=== PATIENT | male | born 1945 | race Caucasian/White ===

== ENCOUNTER 2018-09-19 06:28 | Emergency (ER) | payer MEDICARE ==
[~2018-09-19] VITALS: Ht 180.3 cm; Wt 78.0 kg
[2018-09-19] MEDS ORDERED: AMLODIPINE BESYL5 MG PO (07:03)
[2018-09-19] MEDS ORDERED: LASIX 20 MG TAB20 MG PO (07:04)
[2018-09-19] MEDS ORDERED: LIPITOR20 MG PO (07:04)
[2018-09-19] MEDS ORDERED: PRILOSEC OTC20 MG PO (07:05)
[2018-09-19] MEDS ORDERED: SPIRIVA HANDIH18 MCG IN (07:06)
[2018-09-19] MEDS ORDERED: SYMBICORT1 AE1 IN (07:06)
[2018-09-19] MEDS ORDERED: TOPROL XL PO (07:07)
[2018-09-19] MEDS ORDERED: ASPIRIN EC LOW81 MG PO (07:07)
[2018-09-19] MEDS ORDERED: L-LYSINE500 M2 PO (07:08)
[2018-09-19 07:41] LABS: HEMATOCRIT 43.5 % (39.0-50.0); HEMOGLOBIN 14.4 g/dl (14.0-18.0); IMMATURE GRANULOCYTES 0.4 % (0.0-5.0); MEAN CELL VOLUME 92.8 fL CALC (80.0-100.0); MEAN CORPUSCULAR HGB 30.7 pG CALC (26.0-32.0); MEAN CORPUSCULAR HGB CONC 33.1 g/L CALC (32.0-36.0); NEUT# 9.57 thou/uL (1.82-7.42); RED BLOOD COUNT 4.69 mill/uL (4.70-6.10); RED CELL DISTRI WIDTH 12.9 % (11.5-15.5)
[2018-09-19] MEDS ORDERED: CEPHALEXIN500 M1 PO (07:46)
[2018-09-19] MEDS ORDERED: TRAMADOL HYDROC50 MG PO (07:46)
[2018-09-19] MEDS ORDERED: TAMSULOSIN0.4 MG PO (07:46)
[2018-09-19 08:09] LABS: URINE BILIRUBIN - DIPSTICK NEGATIVE (NEGATIVE); URINE BLOOD DIPSTICK SMALL (NEGATIVE); URINE COLOR YELLOW; URINE GLUCOSE - DIPSTICK NEGATIVE (NEGATIVE); URINE KETONE NEGATIVE (NEGATIVE); URINE LEUK ESTERASE NEGATIVE (NEGATIVE); URINE PH 7.5 (4.5-8.0); URINE PROTEIN - DIPSTICK 100 mg/dL (NEG-TRACE); URINE UROBILINOGEN - DIPSTICK 0.2 E.U./dL (0.2)
[2018-09-19 08:11] LABS: BILIRUBIN, TOTAL 0.4 mg/dL (0.0-1.4); CREATININE 1.5 mg/dL (0.7-1.3); POTASSIUM 4.5 mmol/l (3.5-5.1); TOTAL PROTEIN 7.1 g/dL (6.3-8.2)
[2018-09-19 08:15] LABS: URINE NITRITE - DIPSTICK NEGATIVE (Negative)
[2018-09-19 08:40] VITALS: BP 169/81
== END 2018-09-19 08:40 | disposition home or self-care (01) ==
LOC: ED 06:28
PROVIDERS: Family Medicine
DX: N13.2 Hydronephrosis with renal and ureteral calculous obstruction (principal); I71.4 Abdominal aortic aneurysm, without rupture; E27.9 Disorder of adrenal gland, unspecified; M54.5 Low back pain; R50.9 Fever, unspecified; R11.2 Nausea with vomiting, unspecified; F17.210 Nicotine dependence, cigarettes, uncomplicated

== ENCOUNTER 2019-04-01 | Emergency (ER) | payer MEDICARE ==
[~2019-04-01] MED LIST: AMLODIPINE BESYL5 MG PO; ASPIRIN EC LOW81 MG PO; CEPHALEXIN500 M1 PO; L-LYSINE500 M2 PO; LASIX 20 MG TAB20 MG PO; LIPITOR20 MG PO; PRILOSEC OTC20 MG PO; SPIRIVA HANDIH18 MCG IN; SYMBICORT1 AE1 IN; TAMSULOSIN0.4 MG PO; TOPROL XL PO; TRAMADOL HYDROC50 MG PO
[2019-04-01 14:44] LABS: HEMATOCRIT 44.6 % (39.0-50.0); IMMATURE GRANULOCYTES 0.4 % (0.0-5.0); MEAN CELL VOLUME 90.7 fL CALC (80.0-100.0); MEAN CORPUSCULAR HGB 30.5 pG CALC (26.0-32.0); MEAN CORPUSCULAR HGB CONC 33.6 g/L CALC (32.0-36.0); NEUT# 6.48 thou/uL (1.82-7.42); RED BLOOD COUNT 4.92 mill/uL (4.70-6.10); RED CELL DISTRI WIDTH 13.2 % (11.5-15.5)
[2019-04-01 14:55] LABS: ALBUMIN 4.1 g/dL (3.2-5.0); ALKALINE PHOSPHATASE 116 u/l (38-126); ANION GAP 11 (6-22 (CALC)); BILIRUBIN, TOTAL 0.6 mg/dL (0.0-1.4); BUN 10 mg/dL (8-23); BUN/CREATININE RATIO 11 (12-20 (CALC)); CARBON DIOXIDE 26 mmol/l (22-30); CHLORIDE 102 mmol/l (95-108); CREATININE 0.9 mg/dL (0.7-1.3); GFR > 60 ML/MIN (>=60 (CALC)); GFR FOR AFR.AMER. > 60 ML/MIN (>=60 (CALC)); POTASSIUM 4.3 mmol/l (3.5-5.1); SGOT/AST 30 u/l (19-48); SODIUM 135 mmol/l (137-146); TOTAL PROTEIN 7.3 g/dL (6.3-8.2)
[2019-04-01] MEDS ORDERED: ZITHROMAX250 MG PO (16:04)
[2019-04-01] MEDS ORDERED: MEDDOSEPAK PO (16:04)
== END 2019-04-01 16:19 | disposition home or self-care (01) ==
DX: J44.1 Chronic obstructive pulmonary disease with (acute) exacerbation (principal); Z85.118 Personal history of other malignant neoplasm of bronchus and lung
CPT/HCPCS: Q9967

== ENCOUNTER 2019-04-29 | Emergency (ER) | payer MEDICARE ==
[~2019-04-29] MED LIST changes: +MEDDOSEPAK PO; +ZITHROMAX250 MG PO
[2019-04-29] MEDS ORDERED: PREDNISONE10 MG PO (16:42)
[2019-04-29 16:53] LABS: IMMATURE GRANULOCYTES 0.6 % (0.0-5.0); MEAN CELL VOLUME 93.9 fL CALC (80.0-100.0); MEAN CORPUSCULAR HGB 30.3 pG CALC (26.0-32.0); MEAN CORPUSCULAR HGB CONC 32.3 g/L CALC (32.0-36.0); NEUT# 7.99 thou/uL (1.82-7.42); RED BLOOD COUNT 3.46 mill/uL (4.70-6.10); RED CELL DISTRI WIDTH 13.9 % (11.5-15.5)
[2019-04-29 17:05] LABS: HEMATOCRIT 32.5 % (39.0-50.0); HEMOGLOBIN 10.5 g/dl (14.0-18.0)
[2019-04-29 17:11] LABS: ALBUMIN 3.5 g/dL (3.2-5.0); BILIRUBIN, TOTAL 0.6 mg/dL (0.0-1.4); CREATININE 1.4 mg/dL (0.7-1.3); POTASSIUM 4.3 mmol/l (3.5-5.1)
[2019-04-29 17:33] LABS: URINE BILIRUBIN - DIPSTICK NEGATIVE (NEGATIVE); URINE BLOOD DIPSTICK NEGATIVE (NEGATIVE); URINE COLOR YELLOW; URINE GLUCOSE - DIPSTICK NEGATIVE (NEGATIVE); URINE KETONE NEGATIVE (NEGATIVE); URINE LEUK ESTERASE NEGATIVE (NEGATIVE); URINE NITRITE - DIPSTICK NEGATIVE (Negative); URINE PH 5.5 (4.5-8.0); URINE PROTEIN - DIPSTICK NEGATIVE (NEG-TRACE); URINE UROBILINOGEN - DIPSTICK 0.2 E.U./dL (0.2)
== END 2019-04-29 19:40 | disposition short-term general hospital (02) ==
PROVIDERS: Family Medicine
DX: K92.1 Melena (principal); I10 Essential (primary) hypertension; J44.9 Chronic obstructive pulmonary disease, unspecified; F17.200 Nicotine dependence, unspecified, uncomplicated; Z95.1 Presence of aortocoronary bypass graft
CPT/HCPCS: J2354; Q9967; S0164

== ENCOUNTER 2019-10-03 11:15 | Emergency (ER) | payer MEDICARE ==
[~2019-10-03] VITALS: Ht 180.3 cm; Wt 75.0 kg
[~2019-10-03 11:15] MED LIST changes: +PREDNISONE10 MG PO
[2019-10-03] MEDS ORDERED: CEPHALEXIN500 M1 PO (11:44)
[2019-10-03 12:07] VITALS: BP 143/75
== END 2019-10-03 12:07 | disposition home or self-care (01) ==
LOC: ED 11:15
DX: L03.116 Cellulitis of left lower limb (principal); I10 Essential (primary) hypertension; J44.9 Chronic obstructive pulmonary disease, unspecified; Z95.1 Presence of aortocoronary bypass graft; F17.200 Nicotine dependence, unspecified, uncomplicated

== ENCOUNTER 2020-11-04 05:02 | Emergency (ER) | payer MEDICARE ==
[~2020-11-04] VITALS: Ht 180.3 cm; Wt 85.9 kg
[2020-11-04 05:26] LABS: IMMATURE GRANULOCYTES 0.3 % (0.0-5.0); MEAN CORPUSCULAR HGB 30.1 pG CALC (26.0-32.0); MEAN CORPUSCULAR HGB CONC 30.1 g/dL CAL (32.0-36.0); NEUT# 14.23 thou/uL (1.82-7.42); RED BLOOD COUNT 4.89 mill/uL (4.70-6.10); RED CELL DISTRI WIDTH 13.7 % (11.5-15.5)
[2020-11-04 05:27] LABS: HEMATOCRIT 48.8 % (39.0-50.0); HEMOGLOBIN 14.7 g/dl (14.0-18.0); MEAN CELL VOLUME 99.8 fL CALC (80.0-100.0)
[2020-11-04 05:41] LABS: ALBUMIN 3.7 g/dL (3.2-5.0); CREATININE 1.6 mg/dL (0.7-1.3); POTASSIUM 4.6 mmol/l (3.5-5.1); TOTAL PROTEIN 6.5 g/dL (6.3-8.2)
[2020-11-04 05:42] LABS: ACT PARTIAL THROMBO TIME 20.2 SECONDS (20.0-32.5); PROTHROMBIN TIME 10.4 SECONDS (9.0-12.5)
[2020-11-04 05:43] LABS: BILIRUBIN, TOTAL 0.3 mg/dL (0.0-1.4)
[2020-11-04 07:54] VITALS: BP 147/79
== END 2020-11-04 10:16 | disposition short-term general hospital (02) ==
LOC: ED 05:02
PROC: 5A09357 Assistance with Respiratory Ventilation, Less than 24 Consecutive Hours, Continuous Positive Airway Pressure (ICD-10-PCS; principal; 2020-11-04)
DX: I21.4 Non-ST elevation (NSTEMI) myocardial infarction (principal); J44.1 Chronic obstructive pulmonary disease with (acute) exacerbation; I11.0 Hypertensive heart disease with heart failure; I50.9 Heart failure, unspecified; J96.90 Respiratory failure, unspecified, unspecified whether with hypoxia or hypercapnia; L03.116 Cellulitis of left lower limb; F17.200 Nicotine dependence, unspecified, uncomplicated; Z95.1 Presence of aortocoronary bypass graft; Z85.118 Personal history of other malignant neoplasm of bronchus and lung; Z92.3 Personal history of irradiation; Z92.21 Personal history of antineoplastic chemotherapy; Z90.2 Acquired absence of lung [part of]; Z20.822 Contact with and (suspected) exposure to COVID-19
CPT/HCPCS: J1644

== ENCOUNTER 2021-03-03 14:37 | Inpatient (IN) | payer MEDICARE ==
[~2021-03-03] VITALS: Ht 180.3 cm; Wt 82.0 kg
--- NOTE | 2021-03-03 14:37 | NUR ---
PT TO ROOM 9 VIA WC ABLE TO STAND AND TRANSFER SELF TO STRETCHER. SATS 95 RA
[2021-03-03 15:18] LABS: HEMATOCRIT 41.4 % (39.0-50.0); HEMOGLOBIN 12.2 g/dl (14.0-18.0); IMMATURE GRANULOCYTES 0.2 % (0.0-5.0); MEAN CELL VOLUME 87.2 fL CALC (80.0-100.0); MEAN CORPUSCULAR HGB 25.7 pG CALC (26.0-32.0); MEAN CORPUSCULAR HGB CONC 29.5 g/dL CAL (32.0-36.0); NEUT# 10.57 thou/uL (1.82-7.42); RED BLOOD COUNT 4.75 mill/uL (4.70-6.10)
[2021-03-03 15:31] LABS: ALBUMIN 3.9 g/dL (3.2-5.0); BILIRUBIN, TOTAL 0.7 mg/dL (0.0-1.4); CREATININE 1.6 mg/dL (0.7-1.3); POTASSIUM 4.7 mmol/l (3.5-5.1); TOTAL PROTEIN 6.8 g/dL (6.3-8.2)
--- NOTE | 2021-03-03 16:10 | NUR ---
MEDICATED ORDERED, AT BEDSIDE
--- NOTE | 2021-03-03 16:56 | NUR ---
RESPS EVEN AND UNLABORED ON O2 VIA NC. DENIES NEEDS AT THIS TIME. AT BEDSIDE
--- NOTE | 2021-03-03 17:50 | NUR ---
MEDICATED PER MAR, AT BEDSIDE.
[2021-03-03 19:01] LABS: URINE BILIRUBIN - DIPSTICK NEGATIVE (NEGATIVE); URINE BLOOD DIPSTICK NEGATIVE (NEGATIVE); URINE COLOR YELLOW; URINE GLUCOSE - DIPSTICK >=1000 mg/dL (NEGATIVE); URINE KETONE NEGATIVE (NEGATIVE); URINE LEUK ESTERASE NEGATIVE (NEGATIVE); URINE PROTEIN - DIPSTICK 100 mg/dL (NEG-TRACE); URINE SPECIFIC GRAVITY 1.025; URINE UROBILINOGEN - DIPSTICK 0.2 E.U./dL (0.2)
--- NOTE | 2021-03-03 19:03 | NUR ---
REPORT TO PREMA MILLER
[2021-03-03 19:10] LABS: URINE NITRITE - DIPSTICK NEGATIVE (Negative)
[2021-03-03 19:12] LABS: URINE RBC 0-2 RBC/hpf (0-5); URINE WBC 0-2 WBC/hpf (0-5)
[2021-03-03] MEDS ORDERED: TAMSULOSIN0.4 MG PO (19:14)
[2021-03-03] MEDS ORDERED: ENTRESTO 24-261 TAB PO (19:16)
[2021-03-03] MEDS ORDERED: JARDIANCE10 MG PO (19:17)
--- NOTE | 2021-03-03 20:22 | NUR ---
MD AT BEDSIDE DISCUSSED RESULTS. PT STATED HE DOES NOT WANT TO BE TRANSFERED
--- NOTE | 2021-03-03 21:10 | NUR ---
PT RESTING ON STRETCHER AWARE OF PENDING ADMIT.
--- NOTE | 2021-03-03 21:30 | NUR ---
PT VOIDED APPROX 6000 ML DARK YELLOW URINE IN URINAL SINCE LASIX IV.
--- NOTE | 2021-03-03 21:44 | NUR ---
REPORT PROVIDED TO PAUL BAEZ, ICU. ADVISED OF ALL MEDS, EVENTS, ATTACHMENTS.
--- NOTE | 2021-03-03 22:15 | NUR ---
PT TO ICU, MONITORED BY PORTABLE CADIAC MONITOR FOR TRANSPORT
--- NOTE | 2021-03-03 22:20 | NUR ---
Admission Note Report Given to: BRIONNA Benton RN Transported by: Wheelchair X Stretcher Transported with: X Nurse Transporter X Patent IV X O2 X Leak Gang Supervisor Location: X ICU [facility]
--- NOTE | 2021-03-03 22:25 | NUR ---
RECEIVED INTO ICU BED 1 FROM ER VIA STRETCHER. PATIENT AMBULATED FROM STRETCHER TO BED. STABLE STANCE AND GAIT. PLACED ON HIMS CODER SHOWING SR. ORIENTED TO SURROUNDINGS. EXPLAINED USE OF CALL CORDOBA AND BED CONTROLS. CALL CORDOBA IN REACH.
[2021-03-03 22:30] VITALS: BP 170/91
--- NOTE | 2021-03-03 22:30 | NUR ---
RESP SHALLOW, SLT LABORED. O2 ON AT 2.5 L NC. O2 SAT 99% BREATH SOUNDS DIMINISHED ESSENTIALLY CLEAR. 4+ PITTING EDEMA OF BLE. SALINE LOCK INTACT IN LAC. ADMISSION ASSESSMENT COMPLETED. DISCUSSED PLAN OF CARE. PATIENT PROVIDED WITH SNACK.
[2021-03-03 22:45] VITALS: BP 162/94
[2021-03-03 23:00] VITALS: BP 164/85
[2021-03-03 23:30] VITALS: BP 162/82
--- NOTE | 2021-03-03 23:30 | NUR ---
BABY DOCTOR HERE TO DRAW BLOOD FOR BASELINE PTT PRIOR TO HEPARIN GTT.
[2021-03-04] VITALS (12 sets, daily range): BP systolic 105–164; BP diastolic 58–92
[2021-03-04 00:03] LABS: ACT PARTIAL THROMBO TIME 22.7 SECONDS (20.0-32.5); INTERNATIONAL NORMALIZED RATIO 1.1 RATIO (0.7-1.3)
--- NOTE | 2021-03-04 00:20 | NUR ---
PTT 22.7. PATIENT ACTUAL WEIGHT 81 KG. PATIENT ON LOW DOSE HEPARIN PROTOCOL. HEPARIN BOLUS OF 5000 UNITS GIVEN IVP. HEPARIN GTT STARTED AT 950 UNITS/HR. WILL RECHECK PTT AT 0630.
--- NOTE | 2021-03-04 02:00 | NUR ---
SLEEPING SOUNDLY IN SEMI-FOWLERS POSITION. RESP LESS LABORED AT THIS TIME.
--- NOTE | 2021-03-04 04:00 | NUR ---
PATIENT RESTING WITH EYES CLOSED. AWAKENS EASILY TO NAME. VSS. O2 SAT 100% ON O2 2.5 L NC. MONITOR SR.
[2021-03-04 06:26] LABS: HEMATOCRIT 42.5 % (39.0-50.0); HEMOGLOBIN 12.5 g/dl (14.0-18.0); MEAN CELL VOLUME 86.9 fL CALC (80.0-100.0); MEAN CORPUSCULAR HGB 25.6 pG CALC (26.0-32.0); MEAN CORPUSCULAR HGB CONC 29.4 g/dL CAL (32.0-36.0); RED BLOOD COUNT 4.89 mill/uL (4.70-6.10)
[2021-03-04 06:37] LABS: CHOLESTEROL HDL RATIO 2.6 (<4.4 (CALC)); CREATININE 1.6 mg/dL (0.7-1.3); MAGNESIUM 2.2 mg/dL (1.6-2.3); POTASSIUM 4.9 mmol/l (3.5-5.1)
--- NOTE | 2021-03-04 07:35 | NUR ---
pt awake in recliner; offers no complaints; no apparent distress noted; assessment completed at this time; pt alert and oriented; denies pain; no n/v noted; exertional sob noted with activity; resp even and unlabored; lungs coarse/ faint exp wheezing/ diminished bases; skin colot wnl; hr reg; wk pedal pulses; 4+ edema noted to ble; st on monitor; abd soft with bs present; no bm noted per aligner typewriter; pt admits to voiding without complication; no urine to inspect at this time; urinal at bedside; #20 to lac patent with heparin gtt infusing without complication; heparin bolus and gtt titrated per ptt results; scabbed abrasions noted to ble; plan of care/ am meds explained; pt request to have spouse bring in Entresto; call light within reach; will continue to monitor
--- NOTE | 2021-03-04 08:40 | NUR ---
Dr Melara present at bedside to assess pt and discuss plan of care
--- NOTE | 2021-03-04 10:00 | NUR ---
awake in the recliner; offers no complaints; iv intact and patent; heparin gtt maintained; sr/pvc on monitor; urinal at bedside; o2 per nc; call light within reach; will continue to monitor
--- NOTE | 2021-03-04 12:00 | NUR ---
awake in recliner; spouse at bedside; pt offers no complaints; iv intact and patent; heparin gtt continued; sr on monitor; o2 per nc; call light within reach; will continue to monitor
--- NOTE | 2021-03-04 14:00 | NUR ---
analytical lab analyst at bedside; pt offers no complaints; iv intact and patent; sr on monitor; heparin gtt continued; will continue to monitor
--- NOTE | 2021-03-04 16:10 | NUR ---
awake in bed; no apparent distress noted; pt offers no complaints; iv intact and patent; heparin gtt cont at 1250 units/hr; sr on monitor; o2 per nc at 2L; call light within reach; will continue to monitor
--- NOTE | 2021-03-04 18:00 | NUR ---
awake in bed; offers no complaints; no apparent distress noted; iv intact and maintained; heparin gtt infusing without complication; sr on monitor; call light within reach
--- NOTE | 2021-03-04 19:15 | NUR ---
sitting in bedside chair. lying in bed. denies distress/chest pain. o2 cont per nc. radiation monitor shows sinus rhythm hr 85. #20 lac heparin gtt infusing well. #22 rfa saline lock. po fluids taken well. amb with assist to br then back to chair. meryl well. fall precautions cont.
--- NOTE | 2021-03-04 20:05 | NUR ---
lab here. blood drawn.
--- NOTE | 2021-03-04 22:00 | NUR ---
in recliner. eyes closed. no distress.
[2021-03-05] VITALS (12 sets, daily range): BP systolic 94–138; BP diastolic 47–75
--- NOTE | 2021-03-05 00:01 | NUR ---
eyes closed. no distress. o2 cont.
--- NOTE | 2021-03-05 02:00 | NUR ---
resting quietly. no distress. security monitor shows sinus rhythm pacs pvcs.
--- NOTE | 2021-03-05 03:30 | NUR ---
lab here. blood drawn.
[2021-03-05 04:16] LABS: HEMOGLOBIN 11.9 g/dl (14.0-18.0); IMMATURE GRANULOCYTES 0.2 % (0.0-5.0); MEAN CELL VOLUME 88.6 fL CALC (80.0-100.0); MEAN CORPUSCULAR HGB 25.7 pG CALC (26.0-32.0); NEUT# 7.15 thou/uL (1.82-7.42); RED BLOOD COUNT 4.63 mill/uL (4.70-6.10); RED CELL DISTRI WIDTH 15.1 % (11.5-15.5)
[2021-03-05 04:45] LABS: CREATININE 1.6 mg/dL (0.7-1.3); MAGNESIUM 2.2 mg/dL (1.6-2.3); POTASSIUM 4.6 mmol/l (3.5-5.1)
--- NOTE | 2021-03-05 05:30 | NUR ---
xray here. pcxr obtained.
--- NOTE | 2021-03-05 07:05 | NUR ---
pt awake in recliner (per self); no apparent distress noted; pt offers no complaints; assessment completed at this time; pt alert and oriented; denies pain, chest pain; no n/v noted; resp even and unlabored; lungs clear, diminished bases; skin color wnl; o2 per nc titrated to 1.5L; o2 sat 95%; exertional sob noted; hr reg; wk pedal pulses 4+ edema noted to ble; feet/leg elevation strongly encouraged while in recliner; st on monitor; abd soft with bs present; no bm noted per fiction writer; pt voiding clear dk yellow urine without complication; urinal at bedside; #20 patent to lac with heparin gtt infusing at 1400units/hr; #22 saline locked to rw; no redness or edema noted at site; scabbed abrasions noted to ble; plan of care/am meds explained; call light within reach; will continue to monitor
--- NOTE | 2021-03-05 08:03 | NUR ---
awake in chair; offers no complaints; iv intact and patent; sr on monitor; o2 per nc at 1.5l; call light within reach; will continue to monitor
--- NOTE | 2021-03-05 08:15 | NUR ---
Dr Melara present at bedside to assess pt and discuss plan of care
--- NOTE | 2021-03-05 10:14 | NUR ---
awake in chair; offers no complaints; iv intact and patent; heparin gtt infusing at 1400 units/hr; sr pac/pvc on monitor; call light within reach; will continue to monitor
--- NOTE | 2021-03-05 10:45 | NUR ---
pt noted to have accidently disclodged iv from lac with catheter tip intact; heparin resumed to rw site; lab called for ordered ptt; no answer;
--- NOTE | 2021-03-05 10:58 | NUR ---
underwriter solicitation director spoke with Dr Melara; heparin gtt to be discontinued;
--- NOTE | 2021-03-05 12:00 | NUR ---
awake in chair; offers no complaints; iv intact; sr pvc on monitor; o2 per nc; pt deny needs; call light within reach; will continue to monitor
--- NOTE | 2021-03-05 14:05 | NUR ---
awake in bed; no apparent distress noted; pt offers no complaints; iv intact; pt removed from o2; o2 sat noted at 94% RA; will continued to watch closely; spouse at bedside; spouse assist pt with bath; spouse also requesting home oxygen prior to discharge; o2 qualifications explained; will continue to monitor
--- NOTE | 2021-03-05 16:00 | NUR ---
awake in chair; no apparent distress noted; sr on monitor; will continue to monitor
--- NOTE | 2021-03-05 18:15 | NUR ---
awake in chair; offers no complaints; iv intact and patent; sr pac/pvc on monitor; ra; deny needs; call light within reach
--- NOTE | 2021-03-05 19:30 | NUR ---
sitting in bedside chair. denies resp diff. cardiac cath lab technologist shows sinus rhythm pacs pvcs hr 79. po fluids taken well. voids per urinal. fall precautions cont.
--- NOTE | 2021-03-05 22:00 | NUR ---
eyes closed. no distress. professor of oceanography shows sinus rhythm pacs pvcs hr 72.
--- NOTE | 2021-03-06 00:01 | NUR ---
eyes closed. no distress. sleeping in recliner.
[2021-03-06 01:30] VITALS: BP 123/71
--- NOTE | 2021-03-06 02:00 | NUR ---
resting quietly. resps even & unlabored. no apparent distress.
[2021-03-06 03:30] VITALS: BP 126/57
--- NOTE | 2021-03-06 04:00 | NUR ---
eyes closed. no apparent distress.
--- NOTE | 2021-03-06 04:50 | NUR ---
xray here. pcxr obtained.
--- NOTE | 2021-03-06 05:22 | NUR ---
lab here. blood drawn.
[2021-03-06 05:30] VITALS: BP 126/71
[2021-03-06 05:46] LABS: HEMATOCRIT 42.4 % (39.0-50.0); HEMOGLOBIN 12.4 g/dl (14.0-18.0); IMMATURE GRANULOCYTES 0.2 % (0.0-5.0); MEAN CELL VOLUME 88.1 fL CALC (80.0-100.0); MEAN CORPUSCULAR HGB 25.8 pG CALC (26.0-32.0); MEAN CORPUSCULAR HGB CONC 29.2 g/dL CAL (32.0-36.0); NEUT# 6.03 thou/uL (1.82-7.42); RED BLOOD COUNT 4.81 mill/uL (4.70-6.10)
[2021-03-06 06:02] LABS: CREATININE 1.4 mg/dL (0.7-1.3); POTASSIUM 4.4 mmol/l (3.5-5.1)
[2021-03-06 07:00] VITALS: BP 142/69
--- NOTE | 2021-03-06 07:00 | NUR ---
pt awake in recliner; no apparent distress noted; pt offers no complaints; assessment completed at this time; pt alert and oriented; denies pain/chest pain; no n/v noted; resp even and unlabored; lungs clear with faint exp wheezing/ diminished bases; skin color wnl; ra; o2 sat 92%; loom fixer apprentice moist cough noted; hr reg; wk pedal pulses; 3+ edema noted to ble; sr pac/pvc on monitor; abd soft with bs present; no bm noted per keno writer/runner; pt voiding clear yellow urine; urinal at bedside; #22 saline locked to rw; no redness or edema noted at site; plan of care/ am meds explained; pt remains MST OF; call light within reach; will continue to monitor
--- NOTE | 2021-03-06 08:00 | NUR ---
awake in recliner; offers no complaints; no distress noted; will continue to monitor
--- NOTE | 2021-03-06 08:30 | NUR ---
Dr Melara present at bedside to assess pt and discuss plan of care
[2021-03-06 09:38] VITALS: BP 107/62
--- NOTE | 2021-03-06 10:08 | NUR ---
resting in recliner with eyes closed; no apparent distress noted; iv intact; sr pac/pvc on monitor; call light within reach; will continue to monitor
[2021-03-06] MEDS ORDERED: LASIX 20 MG TAB20 MG PO (10:21)
[2021-03-06] MEDS ORDERED: KLOR-CON M2020 MEQ PO (10:33)
[2021-03-06] MEDS ORDERED: ZITHROMAX250 MG PO (10:33)
--- NOTE | 2021-03-06 11:30 | NUR ---
discharge instructions reviewed in great detail with spouse and pt; both verbalized understanding; home Entresto returned; pt served lunch; will continue to monitor
--- NOTE | 2021-03-06 12:10 | NUR ---
Discharge instructions given. Patient verbalizes understanding of same. Discharged in stable condition via Wheelchair to Home with spouse. All belongings sent with pt.
== END 2021-03-06 12:10 | disposition home or self-care (01) | DRG 291 ==
LOC: ED 14:37 → ICU 20:23
PROVIDERS: Emergency Medicine; Nurse Practitioner; ADMIT Internal Medicine; ATTEND Internal Medicine
DX: I11.0 Hypertensive heart disease with heart failure (principal); I50.23 Acute on chronic systolic (congestive) heart failure; J18.9 Pneumonia, unspecified organism; J96.01 Acute respiratory failure with hypoxia; J44.0 Chronic obstructive pulmonary disease with (acute) lower respiratory infection; R79.89 Other specified abnormal findings of blood chemistry; F17.210 Nicotine dependence, cigarettes, uncomplicated; Z90.2 Acquired absence of lung [part of]; Z79.52 Long term (current) use of systemic steroids; Z20.822 Contact with and (suspected) exposure to COVID-19
CPT/HCPCS: J1644

== ENCOUNTER 2021-10-07 12:50 | Inpatient (IN) | payer MEDICARE ==
[2021-10-07] VITALS (45 sets, daily range): BP systolic 80–133; BP diastolic 32–79
[~2021-10-07] VITALS: Ht 180.3 cm; Wt 80.4 kg
[~2021-10-07 12:50] MED LIST changes: +ENTRESTO 24-261 TAB PO; +JARDIANCE10 MG PO; +KLOR-CON M2020 MEQ PO; -TOPROL XL PO; +TOPROL XL50 MG PO
[2021-10-07] MEDS ORDERED: ELIQUIS5 MG PO (13:13)
[2021-10-07] MEDS ORDERED: LASIX 40 MG TAB40 MG PO (13:15)
[2021-10-07] MEDS ORDERED: IPRATROPIU0.5 MG/3 M IN (13:27)
[2021-10-07] MEDS ORDERED: ACETYLCYST IN (13:28)
[2021-10-07] MEDS ORDERED: CENTRUM SILVER PO (13:29)
[2021-10-07 13:42] LABS: ALBUMIN 3.4 g/dL (3.2-5.0); CREATININE 1.7 mg/dL (0.7-1.3); POTASSIUM 4.5 mmol/l (3.5-5.1); TOTAL PROTEIN 6.2 g/dL (6.3-8.2)
[2021-10-07 13:43] LABS: INTERNATIONAL NORMALIZED RATIO 1.4 RATIO (0.7-1.3); MEAN CORPUSCULAR HGB 28.7 pG CALC (26.0-32.0); MEAN CORPUSCULAR HGB CONC 30.4 g/dL CAL (32.0-36.0); PROTHROMBIN TIME 13.7 SECONDS (9.0-12.5); RED BLOOD COUNT 2.54 mill/uL (4.70-6.10); RED CELL DISTRI WIDTH 26.4 % (11.5-15.5)
[2021-10-07 13:45] LABS: HEMOGLOBIN 7.3 g/dl (14.0-18.0); MEAN CELL VOLUME 94.5 fL CALC (80.0-100.0)
[2021-10-07 13:46] LABS: PLATELET COUNT 71 thou/uL (130-400)
[2021-10-07 13:47] LABS: MANUAL DIFFERENTIAL YES
[2021-10-07 13:57] LABS: BAND 1 % (0-8)
[2021-10-07 13:58] LABS: ANISOCYTOSIS MARKED; PLATELET ESTIMATE MOD DECREASE; POIKILOCYTOSIS FEW
[2021-10-07 13:59] LABS: TEAR DROP CELLS FEW
[2021-10-07 14:00] LABS: OVALOCYTES FEW
[2021-10-07 14:06] LABS: BILIRUBIN, TOTAL 1.4 mg/dL (0.0-1.4)
[2021-10-07 23:41] LABS: HEMATOCRIT 27.1 % (39.0-50.0); HEMOGLOBIN 8.4 g/dl (14.0-18.0)
[2021-10-07 23:43] LABS: URINE BILIRUBIN - DIPSTICK NEGATIVE (NEGATIVE); URINE BLOOD DIPSTICK NEGATIVE (NEGATIVE); URINE COLOR YELLOW; URINE GLUCOSE - DIPSTICK NEGATIVE (NEGATIVE); URINE KETONE NEGATIVE (NEGATIVE); URINE LEUK ESTERASE NEGATIVE (NEGATIVE); URINE PH 5.5 (4.5-8.0); URINE PROTEIN - DIPSTICK 30 mg/dL (NEG-TRACE); URINE SPECIFIC GRAVITY 1.025
[2021-10-07 23:46] LABS: URINE NITRITE - DIPSTICK NEGATIVE (Negative)
[2021-10-07 23:50] LABS: URINE BACTERIA FEW hpf; URINE EPITHELIAL CELLS FEW EPI/hpf (0-FEW)
[2021-10-07 23:51] LABS: URINE FINE GRAN CAST MODERATE lpf; URINE HYALINE CAST RARE lpf (NONE-RARE); URINE MUCUS RARE hpf (NONE-FEW)
[2021-10-08] VITALS (60 sets, daily range): BP systolic 80–136; BP diastolic 50–86
[2021-10-08 05:48] LABS: HEMATOCRIT 28.2 % (39.0-50.0); HEMOGLOBIN 8.7 g/dl (14.0-18.0); MEAN CELL VOLUME 91.9 fL CALC (80.0-100.0); MEAN CORPUSCULAR HGB 28.3 pG CALC (26.0-32.0); MEAN CORPUSCULAR HGB CONC 30.9 g/dL CAL (32.0-36.0); RED BLOOD COUNT 3.07 mill/uL (4.70-6.10); RED CELL DISTRI WIDTH 24.4 % (11.5-15.5)
[2021-10-08 05:59] LABS: BILIRUBIN, TOTAL 1.9 mg/dL (0.0-1.4); MAGNESIUM 1.2 mg/dL (1.6-2.3); POTASSIUM 4.7 mmol/l (3.5-5.1); TOTAL PROTEIN 5.2 g/dL (6.3-8.2)
[2021-10-09] VITALS (89 sets, daily range): BP systolic 63–141; BP diastolic 41–89
[2021-10-09 06:05] LABS: HEMATOCRIT 30.6 % (39.0-50.0); HEMOGLOBIN 9.6 g/dl (14.0-18.0); IMMATURE GRANULOCYTES 0.9 % (0.0-5.0); MEAN CELL VOLUME 90.8 fL CALC (80.0-100.0); MEAN CORPUSCULAR HGB 28.5 pG CALC (26.0-32.0); MEAN CORPUSCULAR HGB CONC 31.4 g/dL CAL (32.0-36.0); NEUT# 0.74 thou/uL (1.82-7.42); RED BLOOD COUNT 3.37 mill/uL (4.70-6.10)
[2021-10-09 06:08] LABS: ALBUMIN 3.1 g/dL (3.2-5.0); BILIRUBIN, TOTAL 1.7 mg/dL (0.0-1.4); CREATININE 2.2 mg/dL (0.7-1.3); TOTAL PROTEIN 5.5 g/dL (6.3-8.2)
[2021-10-10] VITALS (24 sets, daily range): BP systolic 94–136; BP diastolic 44–87
[2021-10-10 05:51] LABS: HEMATOCRIT 28.5 % (39.0-50.0); HEMOGLOBIN 8.9 g/dl (14.0-18.0); MEAN CELL VOLUME 92.2 fL CALC (80.0-100.0); MEAN CORPUSCULAR HGB 28.8 pG CALC (26.0-32.0); MEAN CORPUSCULAR HGB CONC 31.2 g/dL CAL (32.0-36.0); RED BLOOD COUNT 3.09 mill/uL (4.70-6.10); RED CELL DISTRI WIDTH 23.8 % (11.5-15.5)
[2021-10-10 05:52] LABS: IMMATURE GRANULOCYTES 0.6 % (0.0-5.0); NEUT# 1.34 thou/uL (1.82-7.42)
[2021-10-10 05:56] LABS: ALBUMIN 2.6 g/dL (3.2-5.0); CREATININE 1.7 mg/dL (0.7-1.3); MAGNESIUM 1.9 mg/dL (1.6-2.3); POTASSIUM 4.3 mmol/l (3.5-5.1)
[2021-10-11] VITALS (25 sets, daily range): BP systolic 71–124; BP diastolic 39–82
[2021-10-11 05:11] LABS: ALBUMIN 2.8 g/dL (3.2-5.0); BILIRUBIN, TOTAL 0.8 mg/dL (0.0-1.4); CREATININE 1.7 mg/dL (0.7-1.3); MAGNESIUM 1.9 mg/dL (1.6-2.3); POTASSIUM 4.1 mmol/l (3.5-5.1)
[2021-10-11 06:01] LABS: HEMATOCRIT 27.9 % (39.0-50.0); HEMOGLOBIN 8.6 g/dl (14.0-18.0); MEAN CELL VOLUME 92.4 fL CALC (80.0-100.0); MEAN CORPUSCULAR HGB 28.5 pG CALC (26.0-32.0); MEAN CORPUSCULAR HGB CONC 30.8 g/dL CAL (32.0-36.0); RED BLOOD COUNT 3.02 mill/uL (4.70-6.10); RED CELL DISTRI WIDTH 23.7 % (11.5-15.5)
[2021-10-11 06:03] LABS: IMMATURE GRANULOCYTES 14.5 % (0.0-5.0); NEUT# 1.36 thou/uL (1.82-7.42)
[2021-10-12] VITALS (71 sets, daily range): BP systolic 80–122; BP diastolic 49–88
[2021-10-12 05:52] LABS: HEMOGLOBIN 7.7 g/dl (14.0-18.0); MEAN CELL VOLUME 93.6 fL CALC (80.0-100.0); MEAN CORPUSCULAR HGB 28.8 pG CALC (26.0-32.0); MEAN CORPUSCULAR HGB CONC 30.8 g/dL CAL (32.0-36.0); RED BLOOD COUNT 2.67 mill/uL (4.70-6.10); RED CELL DISTRI WIDTH 24.2 % (11.5-15.5)
[2021-10-12 05:53] LABS: ALBUMIN 2.8 g/dL (3.2-5.0); BILIRUBIN, TOTAL 0.6 mg/dL (0.0-1.4); CREATININE 1.8 mg/dL (0.7-1.3); POTASSIUM 4.7 mmol/l (3.5-5.1)
[2021-10-12 06:02] LABS: IMMATURE GRANULOCYTES 13.4 % (0.0-5.0); NEUT# 1.53 thou/uL (1.82-7.42)
[2021-10-13] VITALS (67 sets, daily range): BP systolic 88–135; BP diastolic 59–101
[2021-10-13 05:48] LABS: HEMOGLOBIN 8.7 g/dl (14.0-18.0); MEAN CELL VOLUME 93.3 fL CALC (80.0-100.0); MEAN CORPUSCULAR HGB CONC 31.1 g/dL CAL (32.0-36.0)
[2021-10-13 06:13] LABS: IMMATURE GRANULOCYTES 0.9 % (0.0-5.0); NEUT# 4.78 thou/uL (1.82-7.42)
[2021-10-13 07:16] LABS: BILIRUBIN, TOTAL 0.8 mg/dL (0.0-1.4); CREATININE 1.9 mg/dL (0.7-1.3); MAGNESIUM 1.9 mg/dL (1.6-2.3); TOTAL PROTEIN 5.6 g/dL (6.3-8.2)
[2021-10-13 07:24] LABS: POTASSIUM 5.3 mmol/l (3.5-5.1)
[2021-10-14] VITALS (96 sets, daily range): BP systolic 100–141; BP diastolic 57–109
[2021-10-14 05:52] LABS: ALBUMIN 2.9 g/dL (3.2-5.0); CARBON DIOXIDE 26 mmol/l (22-30); CHLORIDE 110 mmol/l (95-108); GFR FOR AFR.AMER. 39 ML/MIN (>=60 (CALC)); GFR OTHER RACES 32 ML/MIN (>=60 (CALC)); POTASSIUM 4.4 mmol/l (3.5-5.1); SODIUM 144 mmol/l (137-146)
[2021-10-14 05:59] LABS: HEMATOCRIT 29.1 % (39.0-50.0); HEMOGLOBIN 8.9 g/dl (14.0-18.0); MEAN CELL VOLUME 94.2 fL CALC (80.0-100.0); MEAN CORPUSCULAR HGB 28.8 pG CALC (26.0-32.0); MEAN CORPUSCULAR HGB CONC 30.6 g/dL CAL (32.0-36.0); RED BLOOD COUNT 3.09 mill/uL (4.70-6.10)
[2021-10-14 06:16] LABS: BUN 84 mg/dL (8-23)
[2021-10-14 06:17] LABS: IMMATURE GRANULOCYTES 1.6 % (0.0-5.0); NEUT# 10.73 thou/uL (1.82-7.42)
[2021-10-15] VITALS (51 sets, daily range): BP systolic 92–148; BP diastolic 62–91
[2021-10-15 05:07] LABS: HEMOGLOBIN 8.7 g/dl (14.0-18.0); MEAN CELL VOLUME 94.9 fL CALC (80.0-100.0); MEAN CORPUSCULAR HGB 29.5 pG CALC (26.0-32.0); MEAN CORPUSCULAR HGB CONC 31.1 g/dL CAL (32.0-36.0); RED BLOOD COUNT 2.95 mill/uL (4.70-6.10); RED CELL DISTRI WIDTH 22.8 % (11.5-15.5)
[2021-10-15 05:15] LABS: ALBUMIN 2.9 g/dL (3.2-5.0); BILIRUBIN, TOTAL 0.7 mg/dL (0.0-1.4); CREATININE 1.7 mg/dL (0.7-1.3); MAGNESIUM 1.9 mg/dL (1.6-2.3); POTASSIUM 4.4 mmol/l (3.5-5.1); TOTAL PROTEIN 5.1 g/dL (6.3-8.2)
[2021-10-15 05:27] LABS: IMMATURE GRANULOCYTES 3.9 % (0.0-5.0); NEUT# 15.68 thou/uL (1.82-7.42)
[2021-10-16 00:32] VITALS: BP 111/66
[2021-10-16 04:07] VITALS: BP 120/73
[2021-10-16 05:49] LABS: ALBUMIN 2.6 g/dL (3.2-5.0); CREATININE 1.5 mg/dL (0.7-1.3); POTASSIUM 3.7 mmol/l (3.5-5.1)
[2021-10-16 06:50] VITALS: BP 112/64
[2021-10-16 08:31] LABS: HEMATOCRIT 25.7 % (39.0-50.0); HEMOGLOBIN 8.1 g/dl (14.0-18.0); MEAN CELL VOLUME 90.8 fL CALC (80.0-100.0); MEAN CORPUSCULAR HGB 28.6 pG CALC (26.0-32.0); MEAN CORPUSCULAR HGB CONC 31.5 g/dL CAL (32.0-36.0); RED BLOOD COUNT 2.83 mill/uL (4.70-6.10); RED CELL DISTRI WIDTH 22.8 % (11.5-15.5)
[2021-10-16 09:31] LABS: IMMATURE GRANULOCYTES 2.2 % (0.0-5.0); NEUT# 14.32 thou/uL (1.82-7.42)
[2021-10-16 11:23] VITALS: BP 115/64
[2021-10-16 15:54] VITALS: BP 111/69
[2021-10-16 18:44] VITALS: BP 113/66
[2021-10-17 00:22] VITALS: BP 110/72
[2021-10-17 04:21] VITALS: BP 127/81
[2021-10-17 05:10] LABS: HEMATOCRIT 26.9 % (39.0-50.0); HEMOGLOBIN 8.5 g/dl (14.0-18.0); IMMATURE GRANULOCYTES 2.9 % (0.0-5.0); MEAN CELL VOLUME 90.6 fL CALC (80.0-100.0); MEAN CORPUSCULAR HGB 28.6 pG CALC (26.0-32.0); MEAN CORPUSCULAR HGB CONC 31.6 g/dL CAL (32.0-36.0); NEUT# 14.57 thou/uL (1.82-7.42); RED BLOOD COUNT 2.97 mill/uL (4.70-6.10); RED CELL DISTRI WIDTH 22.8 % (11.5-15.5)
[2021-10-17 05:34] LABS: ALBUMIN 2.6 g/dL (3.2-5.0); CREATININE 1.6 mg/dL (0.7-1.3); POTASSIUM 3.9 mmol/l (3.5-5.1)
[2021-10-17 06:14] VITALS: BP 111/76
[2021-10-17 10:01] VITALS: BP 102/65
[2021-10-17 14:40] VITALS: BP 112/65
[2021-10-17 19:17] VITALS: BP 121/66
[2021-10-18 01:14] VITALS: BP 107/64
[2021-10-18 03:56] VITALS: BP 109/70
[2021-10-18 05:29] LABS: HEMATOCRIT 25.7 % (39.0-50.0); HEMOGLOBIN 8.1 g/dl (14.0-18.0); MEAN CELL VOLUME 91.5 fL CALC (80.0-100.0); MEAN CORPUSCULAR HGB 28.8 pG CALC (26.0-32.0); MEAN CORPUSCULAR HGB CONC 31.5 g/dL CAL (32.0-36.0); RED BLOOD COUNT 2.81 mill/uL (4.70-6.10)
[2021-10-18 05:52] LABS: CREATININE 1.7 mg/dL (0.7-1.3); POTASSIUM 3.6 mmol/l (3.5-5.1)
[2021-10-18 05:53] LABS: MAGNESIUM 1.4 mg/dL (1.6-2.3)
[2021-10-18 06:37] VITALS: BP 110/69; BP 115/53
[2021-10-18 09:56] VITALS: BP 100/61
[2021-10-18 14:30] VITALS: BP 104/55
[2021-10-18 18:47] VITALS: BP 102/57
[2021-10-19] VITALS (15 sets, daily range): BP systolic 85–118; BP diastolic 46–75
[2021-10-19 05:54] LABS: HEMATOCRIT 24.4 % (39.0-50.0); HEMOGLOBIN 7.7 g/dl (14.0-18.0); MEAN CELL VOLUME 91.7 fL CALC (80.0-100.0); MEAN CORPUSCULAR HGB 28.9 pG CALC (26.0-32.0); MEAN CORPUSCULAR HGB CONC 31.6 g/dL CAL (32.0-36.0); RED BLOOD COUNT 2.66 mill/uL (4.70-6.10); RED CELL DISTRI WIDTH 22.8 % (11.5-15.5)
[2021-10-19 06:14] LABS: CREATININE 1.8 mg/dL (0.7-1.3); MAGNESIUM 1.6 mg/dL (1.6-2.3); POTASSIUM 3.6 mmol/l (3.5-5.1)
[2021-10-19] MEDS ORDERED: PANTOPRAZOLE SO40 M1 PO (13:14)
[2021-10-19] MEDS ORDERED: LEVAQUIN750 M1 PO (13:14)
[2021-10-19] MEDS ORDERED: MEDDOSEPAK PO (13:14)
== END 2021-10-19 17:40 | disposition home health service (06) | DRG 808 ==
LOC: ED 12:50 → ED-I 13:35 → ED 13:35 → ED-I 16:00 → ED 16:42 → ICU 16:43 → MS2 10-15 18:11
PROVIDERS: Internal Medicine; Internal Medicine Nephrology; Nurse Practitioner; ADMIT Internal Medicine; ATTEND Internal Medicine
PROC: 30233N1 Transfusion of Nonautologous Red Blood Cells into Peripheral Vein, Percutaneous Approach (ICD-10-PCS; principal; 2021-10-07)
PROC: 30233N1 Transfusion of Nonautologous Red Blood Cells into Peripheral Vein, Percutaneous Approach (ICD-10-PCS; 2021-10-07)
PROC: 30233R1 Transfusion of Nonautologous Platelets into Peripheral Vein, Percutaneous Approach (ICD-10-PCS; 2021-10-11)
PROC: 30233N1 Transfusion of Nonautologous Red Blood Cells into Peripheral Vein, Percutaneous Approach (ICD-10-PCS; 2021-10-12)
PROC: 30233R1 Transfusion of Nonautologous Platelets into Peripheral Vein, Percutaneous Approach (ICD-10-PCS; 2021-10-13)
PROC: 30233N1 Transfusion of Nonautologous Red Blood Cells into Peripheral Vein, Percutaneous Approach (ICD-10-PCS; 2021-10-19)
PROC: 30233N1 Transfusion of Nonautologous Red Blood Cells into Peripheral Vein, Percutaneous Approach (ICD-10-PCS; 2021-10-19)
DX: D61.810 Antineoplastic chemotherapy induced pancytopenia (principal); J96.21 Acute and chronic respiratory failure with hypoxia; J15.1 Pneumonia due to Pseudomonas; I50.23 Acute on chronic systolic (congestive) heart failure; C34.91 Malignant neoplasm of unspecified part of right bronchus or lung; J44.0 Chronic obstructive pulmonary disease with (acute) lower respiratory infection; J44.1 Chronic obstructive pulmonary disease with (acute) exacerbation; I24.8 Other forms of acute ischemic heart disease; I13.0 Hypertensive heart and chronic kidney disease with heart failure and stage 1 through stage 4 chronic kidney disease, or unspecified chronic kidney disease; N17.9 Acute kidney failure, unspecified; N18.32 Chronic kidney disease, stage 3b; T45.1X5A Adverse effect of antineoplastic and immunosuppressive drugs, initial encounter; G62.9 Polyneuropathy, unspecified; F41.9 Anxiety disorder, unspecified; N40.0 Benign prostatic hyperplasia without lower urinary tract symptoms; I25.10 Atherosclerotic heart disease of native coronary artery without angina pectoris; E86.9 Volume depletion, unspecified; E78.5 Hyperlipidemia, unspecified; E87.5 Hyperkalemia; Z79.01 Long term (current) use of anticoagulants; Z92.3 Personal history of irradiation; Z90.2 Acquired absence of lung [part of]; Z86.718 Personal history of other venous thrombosis and embolism; Z79.899 Other long term (current) drug therapy; Z87.891 Personal history of nicotine dependence; Z85.118 Personal history of other malignant neoplasm of bronchus and lung; Z20.822 Contact with and (suspected) exposure to COVID-19
CPT/HCPCS: J0692; J1447; J3370; J3475; P9016; P9034; P9037; Q3014